=== PATIENT | male | born 1980 | race Caucasian/White ===

== ENCOUNTER 2017-01-27 03:46 | Emergency (ER) | payer OTHER ==
[~2017-01-27] VITALS: Ht 193 cm; Wt 108.9 kg
[~2017-01-27 03:46] MED LIST: ALPR1TAB6; COLE1TAB2 PO; HYDR-971 PO; HYOS0.1264 PO; LISI2.5T PO; METR500T4 PO; ONDA4TAB7 PO; OXYC1TAB8; OXYC5CAP3 PO; PROM25SU32 RC; SCOP1PAT TP
[2017-01-27] MEDS ORDERED: IV NORMAL SALINE 1000ML BAG 1,000 ML IV SCH (03:54)
[2017-01-27 04:16] LABS: BASO % 0 % (0-3); EOS % 1 % (0-3); HEMOGLOBIN 14.6 g/dL (13.0-17.5); LYMPH # 3.5 x10^3/uL (1.0-4.8); LYMPH % 31 % (24-48); MEAN CORPUSCULAR HEMOGLOBIN 31 pg (25-35); MEAN CORPUSCULAR HGB CONC 34 g/dL (31-37); MEAN CORPUSCULAR VOLUME 90 fL (79-100); MONO % 9 % (0-9); NEUT % 59 % (31-73); PLATELET COUNT 299 x10^3/uL (140-400); RED BLOOD COUNT 4.78 x10^6/uL (4.30-5.70); RED CELL DISTRIBUTION WIDTH 13.8 % (11.5-14.5); WHITE BLOOD COUNT 11.2 x10^3/uL (4.0-11.0)
[2017-01-27 04:23] LABS: CALCIUM 9.5 mg/dL (8.5-10.1); CREATININE 1.2 mg/dL (0.7-1.3); GFR 67.8; POTASSIUM 3.3 mmol/L (3.5-5.1)
[2017-01-27 04:29] LABS: ALBUMIN 4.4 g/dL (3.4-5.0); ALBUMIN/GLOBULIN RATIO 1.2 (1.0-1.7); TOTAL BILIRUBIN 0.5 mg/dL (0.2-1.0); TOTAL PROTEIN 8.1 g/dL (6.4-8.2)
[2017-01-27] MEDS ORDERED: CONTRAST GIVEN MC PRN (04:30)
[2017-01-27] MEDS ORDERED: ONDANSETRON PF 4 MG/2 ML VIAL. IV ONE (04:30)
[2017-01-27] MEDS ORDERED: HYDROMORPHONE 2 MG/ML VIAL. IV ONE (04:30)
[2017-01-27 04:51] LABS: BILIRUBIN,URINE SMALL (NEG); GLUCOSE,URINE NEGATIVE (NEG); NITRITE,URINE NEGATIVE (NEG); PROTEIN,URINE NEGATIVE (NEG-TRACE); UROBILINOGEN,URINE 0.2 mg/dL (0.2 mg/dL)
[2017-01-27] MEDS ORDERED: IOHEXOL 300 MG/ML 75 ML VIAL IV ONE (05:00)
--- NOTE | 2017-01-27 05:05 | RAD ---
PROCEDURE CT abdomen and pelvis with contrast HISTORY Left lower quadrant pain; hx diverticulitis; Omni 300, 75ml TECHNIQUE CT scan of the abdomen and pelvis was done using 75 mL of Omnipaque 300 contrast. One or more of the following individualized dose reduction techniques were utilized for this examination: 1. Automated exposure control; 2. Adjustment of the mA and/or kV according to patient size; 3. Use of iterative reconstruction technique.One or more of the following individualized dose reduction techniques were utilized for this examination: 1. Automated exposure control; 2. Adjustment of the mA and/or kV according to patient size; 3. Use of iterative reconstruction technique. COMPARISON Comparison is made with the study from December 01 FINDINGS There is linear atelectasis in the lung bases without other infiltrates. Patient has had a cholecystectomy. A liver lesion is not identified. Spleen and adrenal glands are normal. Pancreas is normal. There is no mass or hydronephrosis in the kidneys. There are small left renal cysts. There is no free air or ascites or bowel obstruction. Appendix is normal. There is not evidence of an acute diverticulitis. There is no free fluid in the pelvis. IMPRESSION 1. No abdominal or pelvic mass or acute inflammatory process noted. 2. No significant change from the recent prior study. Electronically signed by: Maurizio Oneil MD (Jan 27, 2017 05:04:26)
[2017-01-27 05:06] LABS: BACTERIA,URINE FEW /HPF (0-FEW); SQUAMOUS EPITHELIAL CELL,UR FEW /LPF; WBC,URINE 0 /HPF (0-4)
[2017-01-27] MEDS ORDERED: ONDA4TAB10 SL (05:21)
[2017-01-27] MEDS ORDERED: TRAM-29 PO (05:21)
--- NOTE | 2017-01-27 05:21 | PHYS DOC ---
Past Medical History Past Medical History: Diverticulitis, Hypertension, Other Additional Past Medical Histor: restless leg syndrome Past Surgical History: Cholecystectomy, Tonsillectomy, Other Additional Past Surgical Histo: BOWEL RESECTION Alcohol Use: Occasionally Drug Use: None Adult General Chief Complaint Chief Complaint: ABDOMINAL PAIN HPI HPI Patient is a 36 year old gentleman with a history significant for diverticulitis status post colon resection secondary to diverticulitis presents here today complaining of left lower quadrant abdominal pain that started earlier today with nausea. Patient denies any fevers shakes chills. Patient denies any bowel changes. Patient denies any dysuria frequency or urgency. Patient's physical exam and the ER is consistent with tenderness to palpation to his left lower quadrant. Patient has no rebound or guarding. Patient's NABS. Patient is not exhibiting any signs or symptoms of be consistent with an acute surgical abdomen. In the ER patient had a CT scan of the abdomen and pelvis which revealed no acute pathology as read by the radiology service. There is no abdominal or pelvic masses or acute inflammatory processes are noted. There are no significant changes from his recent prior study. While in the ER patient last on for all unremarkable. Patient's lipase is mildly elevated but not consistent with acute pancreatitis and his presentation was actually not consistent with acute pancreatitis. Patient is given a dose of pain medicines here in the ED as well as IV fluids and feels improved. The etiology of the patient's abdominal pain is unclear. I discussed the patient that does not appear to Reis that he has any acute emergent issues that will require further inpatient R ER evaluation. We have ruled out to the best ability all emergent issues. Patient is to follow-up with his primary care physician for outpatient evaluation with a possible colonoscopy and further studies per the specialist service. Review of Systems Review of Systems Constitutional: Denies fever or chills [] Eyes: Denies change in visual acuity, redness, or eye pain [] HENT: Denies nasal congestion or sore throat [] All other review systems are negative except as documented in the history of present illness portion. Current Medications Current Medications Current Medications Medications (Trade) Dose Ordered Sig/Ria Start Time Stop Time Status Last Admin Dose Admin Hydromorphone HCl (Dilaudid) 1 mg 1X ONCE 01/27/17 04:30 01/27/17 04:31 DC 01/27/17 04:20 1 MG Info (Do NOT chart on this entry -- for MONITORING) 1 each PRN DAILY PRN 01/27/17 04:30 01/29/17 04:29 Iohexol (Omnipaque 300 Mg/ml) 75 ml 1X ONCE 01/27/17 05:00 01/27/17 05:01 DC 01/27/17 04:39 75 ML Ondansetron HCl (Zofran) 4 mg 1X ONCE 01/27/17 04:30 01/27/17 04:31 DC 01/27/17 04:16 4 MG Sodium Chloride (Iv Sodium Chloride 0.9% 1000ml Bag) 1,000 ml @ 1,000 mls/hr Q1H 01/27/17 03:54 01/27/17 04:53 DC 01/27/17 04:13 1,000 MLS/HR Allergies Allergies Allergies Coded Allergies Type Severity Reaction Last Updated Verified No Known Drug Allergies 12/05/13 No Physical Exam Physical Exam Constitutional: Well developed, well nourished, no acute distress, non-toxic appearance. [] HENT: Normocephalic, atraumatic, bilateral external ears normal, oropharynx moist, no oral exudates, nose normal. [] Eyes: PERRLA, EOMI, conjunctiva normal, no discharge. [] Neck: Normal range of motion, no tenderness, supple, no stridor. [] Cardiovascular:Heart rate regular rhythm, no murmur [] Lungs & Thorax: Bilateral breath sounds clear to auscultation [] Abdomen: Bowel sounds normal, soft, no masses, no pulsatile masses. [] Skin: Warm, dry, no erythema, no rash. [] Back: No tenderness, no CVA tenderness. [] Extremities: No tenderness, no cyanosis, no clubbing, ROM intact, no edema. [] Neurologic: Alert and oriented X 3, normal motor function, normal sensory function, no focal deficits noted. [] Psychologic: Affect normal, judgement normal, mood normal. [] Current Patient Data Vital Signs Vital Signs Date Time Temp Pulse Resp B/P Pulse Ox O2 Delivery O2 Flow Rate FiO2 01/27/17 04:20 18 01/27/17 03:55 97.3 94 152/95 96 Room Air 97.3 Lab Values Laboratory Tests Test 01/27/17 04:00 01/27/17 04:42 White Blood Count 11.2x10^3/uL (4.0-11.0) H Red Blood Count 4.78x10^6/uL (4.30-5.70) Hemoglobin 14.6g/dL (13.0-17.5) Hematocrit 43.0% (39.0-53.0) Mean Corpuscular Volume 90fL (79-100) Mean Corpuscular Hemoglobin 31pg (25-35) Mean Corpuscular Hemoglobin Concent 34g/dL (31-37) Red Cell Distribution Width 13.8% (11.5-14.5) Platelet Count 299x10^3/uL (140-400) Neutrophils (%) (Auto) 59% (31-73) Lymphocytes (%) (Auto) 31% (24-48) Monocytes (%) (Auto) 9% (0-9) Eosinophils (%) (Auto) 1% (0-3) Basophils (%) (Auto) 0% (0-3) Neutrophils # (Auto) 6.6x10^3uL (1.8-7.7) Lymphocytes # (Auto) 3.5x10^3/uL (1.0-4.8) Monocytes # (Auto) 1.0x10^3/uL (0.0-1.1) Eosinophils # (Auto) 0.1x10^3/uL (0.0-0.7) Basophils # (Auto) 0.0x10^3/uL (0.0-0.2) Sodium Level 143mmol/L (136-145) Potassium Level 3.3mmol/L (3.5-5.1) L Chloride Level 103mmol/L (98-107) Carbon Dioxide Level 24mmol/L (21-32) Anion Gap 16 (6-14) H Blood Urea Nitrogen 13mg/dL (8-26) Creatinine 1.2mg/dL (0.7-1.3) Estimated GFR (Cockcroft-Gault) 67.8 BUN/Creatinine Ratio 11 (6-20) Glucose Level 94mg/dL (70-99) Calcium Level 9.5mg/dL (8.5-10.1) Total Bilirubin 0.5mg/dL (0.2-1.0) Aspartate Amino Transferase (AST) 12U/L (15-37) L Alanine Aminotransferase (ALT) 36U/L (16-63) Alkaline Phosphatase 61U/L (46-116) Total Protein 8.1g/dL (6.4-8.2) Albumin 4.4g/dL (3.4-5.0) Albumin/Globulin Ratio 1.2 (1.0-1.7) Lipase 452U/L (73-393) H Urine Collection Type Unknown Urine Color Yellow Urine Clarity Clear Urine pH 6.0 Urine Specific [place] >=1.030 Urine Protein Negativemg/dL (NEG-TRACE) Urine Glucose (UA) Negativemg/dL (NEG) Urine Ketones (Stick) 40mg/dL (NEG) Urine Blood Negative (NEG) Urine Nitrite Negative (NEG) Urine Bilirubin Small (NEG) Urine Urobilinogen Dipstick 0.2mg/dL (0.2 mg/dL) Urine Leukocyte Esterase Negative (NEG) Urine RBC 6-10/HPF (0-2) Urine WBC 0/HPF (0-4) Urine Squamous Epithelial Cells Few/LPF Urine Bacteria Few/HPF (0-FEW) Urine Mucus Marked/LPF Laboratory Tests 01/27/17 04:00 Laboratory Tests 01/27/17 04:00 EKG EKG [] Radiology/Procedures Radiology/Procedures [] Course & Med Decision Making Course & Med Decision Making Pertinent Labs and Imaging studies reviewed. (See chart for details) [] Dragon Disclaimer Dragon Disclaimer This electronic medical record was generated, in whole or in part, using a voice recognition dictation system. Departure Departure Impression: Primary Impression: Abdominal pain Disposition: HOME, SELF-CARE Condition: IMPROVED Referrals: KIA JORDAN MD (PCP) Patient Instructions: Abdominal Pain (Nonspecific) Scripts Ondansetron (Zofran Odt)4 Mg Tab.rapdis1 Tab SL Q6HRS PRN NAUSEA #12 TAB Prov:TED COLLINS MD 01/27/17 Tramadol Hcl (Ultram)50 Mg Tablet1 Tab PO Q6HRS #14 TAB Prov:TED COLLINS MD 01/27/17 TED COLLINS MD Jan 27, 2017 05:21
[2017-01-27 05:30] VITALS: BP 124/78
== END 2017-01-27 05:32 | disposition home or self-care (01) ==
LOC: ER 03:46
DX: R10.32 Left lower quadrant pain (principal); R74.8 Abnormal levels of other serum enzymes; I10 Essential (primary) hypertension; G25.81 Restless legs syndrome; Z90.49 Acquired absence of other specified parts of digestive tract
CPT/HCPCS: 36415; 74177; 80053; 81001; 83690; 85027; 96361; 96374; 96375; 99285; J1170; J2405; J7030; Q9967

== ENCOUNTER 2017-02-21 18:40 | Inpatient (IN) | payer SELFPAY ==
[~2017-02-21] VITALS: Ht 193 cm; Wt 100.7 kg
[~2017-02-21 18:40] MED LIST changes: +ONDA4TAB10 SL; +TRAM-29 PO
[2017-02-21] MEDS ORDERED: IV NORMAL SALINE 1000ML BAG 1,000 ML IV ONE (19:15)
[2017-02-21] MEDS ORDERED: ONDANSETRON PF 4 MG/2 ML VIAL. IV ONE (19:15)
[2017-02-21] MEDS ORDERED: HYDROMORPHONE 2 MG/ML VIAL. IV ONE (19:15)
[2017-02-21 19:39] LABS: BASO # 0.1 x10^3/uL (0.0-0.2); BASO % 1 % (0-3); EOS % 1 % (0-3); HEMATOCRIT 46.4 % (39.0-53.0); HEMOGLOBIN 15.7 g/dL (13.0-17.5); LYMPH # 2.4 x10^3/uL (1.0-4.8); LYMPH % 30 % (24-48); MEAN CORPUSCULAR HEMOGLOBIN 31 pg (25-35); MEAN CORPUSCULAR HGB CONC 34 g/dL (31-37); MEAN CORPUSCULAR VOLUME 92 fL (79-100); MONO % 10 % (0-9); NEUT % 58 % (31-73); PLATELET COUNT 293 x10^3/uL (140-400); RED BLOOD COUNT 5.04 x10^6/uL (4.30-5.70); RED CELL DISTRIBUTION WIDTH 14.6 % (11.5-14.5); WHITE BLOOD COUNT 7.9 x10^3/uL (4.0-11.0)
[2017-02-21 19:51] LABS: CALCIUM 9.8 mg/dL (8.5-10.1); CREATININE 1.1 mg/dL (0.7-1.3); GFR 74.9; POTASSIUM 4.2 mmol/L (3.5-5.1)
[2017-02-21 19:57] LABS: ALBUMIN 4.5 g/dL (3.4-5.0); ALBUMIN/GLOBULIN RATIO 1.1 (1.0-1.7); TOTAL BILIRUBIN 0.5 mg/dL (0.2-1.0); TOTAL PROTEIN 8.6 g/dL (6.4-8.2)
--- NOTE | 2017-02-21 20:07 | RAD ---
PROCEDURE CT abdomen and pelvis without intravenous contrast. HISTORY Left lower quadrant pain. History of the diverticulitis and colonic resection. TECHNIQUE Helical CT of the abdomen and pelvis was performed without intravenous or oral contrast. Exposure: One or more of the following individualized dose reduction techniques were utilized for this examination: 1. Automated exposure control. 2. Adjustment of the mA and/or kV according to patient size. 3. Use of iterative reconstruction technique. COMPARISON CT abdomen pelvis January 27, 2017. FINDINGS Evaluation of solid organs is limited by lack of intravenous contrast. Evaluation of enteric structures may be limited by lack of oral contrast. Liver, spleen, pancreas, and bilateral adrenal glands are unremarkable. Bilateral kidneys and ureters are free of stone or obstruction. No bowel obstruction or inflammation is identified. Suture material is seen involving the sigmoid colon, compatible with previous bowel colonic resection. Urinary bladder is unremarkable. No free air or free fluid is seen in the abdomen or pelvis. Appendix has maximum diameter of 8-9 millimeters, mildly enlarged, although there is no surrounding fat inflammation. On previous study, diameter of the appendix was 8 millimeters. IMPRESSION The appendix is apparently enlarged measuring 8-9 millimeters in diameter, although no significant periappendiceal inflammation is seen. This size is considered equivocal for acute appendicitis, although there is no surrounding fat inflammation. Recommend clinical correlation. Electronically signed by: Ulysses Paulino MD (Feb 21, 2017 20:06:02)
[2017-02-21 20:26] LABS: BILIRUBIN,URINE NEGATIVE (NEG); GLUCOSE,URINE NEGATIVE (NEG); NITRITE,URINE NEGATIVE (NEG); PH,URINE 6.5; PROTEIN,URINE NEGATIVE (NEG-TRACE); UROBILINOGEN,URINE 0.2 mg/dL (0.2 mg/dL)
[2017-02-21] MEDS ORDERED: FENTANYL PF 100 MCG/2 ML VIAL. IV PRN (20:30)
[2017-02-21] MEDS ORDERED: ONDANSETRON PF 4 MG/2 ML VIAL. IV PRN (20:30)
[2017-02-21 20:32] LABS: BACTERIA,URINE 0 /HPF (0-FEW); RBC,URINE 0 /HPF (0-2); SQUAMOUS EPITHELIAL CELL,UR FEW /LPF
[2017-02-21] MEDS: HYDROMORPHONE 2 MG/ML VIAL. IV/SQ PRN ×3 (20:43→21:41)
--- NOTE | 2017-02-21 21:32 | PHYS DOC ---
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 He states the pain came so bad over the last several hours that he tried to give himself an IV to start some fluids but was unsuccessful. He is not had any high fever. He has had nausea and vomiting. He states he's been unable to eat much of anything. He denies any melena or hematemesis. [] Review of Systems Review of Systems Constitutional: Denies fever or chills [] Eyes: Denies change in visual acuity, redness, or eye pain [] HENT: Denies nasal congestion or sore throat [] Respiratory: Denies cough or shortness of breath [] Cardiovascular: No additional information not addressed in HPI [] GI: Lower abdominal pain [] : Denies dysuria or hematuria [] Musculoskeletal: Denies back pain or joint pain [] Integument: Denies rash or skin lesions [] Neurologic: Denies headache, focal weakness or sensory changes [] Endocrine: Denies polyuria or polydipsia [] Current Medications Current Medications Current Medications Medications (Trade) Dose Ordered Sig/Ria Start Time Stop Time Status Last Admin Dose Admin Hydromorphone HCl (Dilaudid) 1 mg 1X ONCE 02/21/17 19:15 02/21/17 19:16 DC 02/21/17 19:27 1 MG Hydromorphone HCl 1 mg 1 mg PRN Q15MIN PRN 02/21/17 20:15 02/22/17 20:14 02/21/17 21:11 1 MG Ondansetron HCl (Zofran) 4 mg 1X ONCE 02/21/17 19:15 02/21/17 19:16 DC 02/21/17 19:27 4 MG Sodium Chloride (Iv Sodium Chloride 0.9% 1000ml Bag) 1,000 ml @ 150 mls/hr Q6H40M 02/21/17 20:17 02/22/17 20:16 Allergies Allergies Allergies Coded Allergies Type Severity Reaction Last Updated Verified No Known Drug Allergies 12/05/13 No Physical Exam Physical Exam Constitutional: Well developed, well nourished, moderate distress, non-toxic appearance. [] HENT: Normocephalic, atraumatic, bilateral external ears normal, oropharynx moist, no oral exudates, nose normal. [] Eyes: PERRLA, EOMI, conjunctiva normal, no discharge. [] Neck: Normal range of motion, no tenderness, supple, no stridor. [] Cardiovascular:Heart rate regular rhythm, no murmur [] Lungs & Thorax: Bilateral breath sounds clear to auscultation [] Abdomen: Mildly tender to palp across the low abdomen some guarding in the left lower quadrant no rebound [] Skin: Warm, dry, no erythema, no rash. [] Back: No tenderness, no CVA tenderness. [] Extremities: No tenderness, no cyanosis, no clubbing, ROM intact, no edema. [] Neurologic: Alert and oriented X 3, normal motor function, normal sensory function, no focal deficits noted. [] Psychologic: Affect normal, judgement normal, mood normal. [] Current Patient Data Vital Signs Vital Signs Date Time Temp Pulse Resp B/P Pulse Ox O2 Delivery O2 Flow Rate FiO2 02/21/17 19:27 Room Air 02/21/17 18:56 98.4 112 20 130/87 99 98.4 Lab Values Laboratory Tests Test 02/21/17 19:20 02/21/17 20:15 White Blood Count 7.9x10^3/uL (4.0-11.0) Red Blood Count 5.04x10^6/uL (4.30-5.70) Hemoglobin 15.7g/dL (13.0-17.5) Hematocrit 46.4% (39.0-53.0) Mean Corpuscular Volume 92fL (79-100) Mean Corpuscular Hemoglobin 31pg (25-35) Mean Corpuscular Hemoglobin Concent 34g/dL (31-37) Red Cell Distribution Width 14.6% (11.5-14.5) H Platelet Count 293x10^3/uL (140-400) Neutrophils (%) (Auto) 58% (31-73) Lymphocytes (%) (Auto) 30% (24-48) Monocytes (%) (Auto) 10% (0-9) H Eosinophils (%) (Auto) 1% (0-3) Basophils (%) (Auto) 1% (0-3) Neutrophils # (Auto) 4.6x10^3uL (1.8-7.7) Lymphocytes # (Auto) 2.4x10^3/uL (1.0-4.8) Monocytes # (Auto) 0.8x10^3/uL (0.0-1.1) Eosinophils # (Auto) 0.1x10^3/uL (0.0-0.7) Basophils # (Auto) 0.1x10^3/uL (0.0-0.2) Sodium Level 144mmol/L (136-145) Potassium Level 4.2mmol/L (3.5-5.1) Chloride Level 106mmol/L (98-107) Carbon Dioxide Level 25mmol/L (21-32) Anion Gap 13 (6-14) Blood Urea Nitrogen 7mg/dL (8-26) L Creatinine 1.1mg/dL (0.7-1.3) Estimated GFR (Cockcroft-Gault) 74.9 BUN/Creatinine Ratio 6 (6-20) Glucose Level 96mg/dL (70-99) Calcium Level 9.8mg/dL (8.5-10.1) Total Bilirubin 0.5mg/dL (0.2-1.0) Aspartate Amino Transferase (AST) 21U/L (15-37) Alanine Aminotransferase (ALT) 51U/L (16-63) Alkaline Phosphatase 80U/L (46-116) Total Protein 8.6g/dL (6.4-8.2) H Albumin 4.5g/dL (3.4-5.0) Albumin/Globulin Ratio 1.1 (1.0-1.7) Lipase 328U/L (73-393) Urine Collection Type Unknown Urine Color Yellow Urine Clarity Cloudy Urine pH 6.5 Urine Specific [place] <=1.005 Urine Protein Negativemg/dL (NEG-TRACE) Urine Glucose (UA) Negativemg/dL (NEG) Urine Ketones (Stick) Negativemg/dL (NEG) Urine Blood Negative (NEG) Urine Nitrite Negative (NEG) Urine Bilirubin Negative (NEG) Urine Urobilinogen Dipstick 0.2mg/dL (0.2 mg/dL) Urine Leukocyte Esterase Trace (NEG) Urine RBC 0/HPF (0-2) Urine WBC 5-10/HPF (0-4) Urine Squamous Epithelial Cells Few/LPF Urine Bacteria 0/HPF (0-FEW) Urine Mucus Slight/LPF Laboratory Tests 02/21/17 19:20 Laboratory Tests 02/21/17 19:20 EKG EKG [] Radiology/Procedures Radiology/Procedures [] Impressions: PROCEDURE: ABDOMEN PELVIS WO CONTRAST PROCEDURE CT abdomen and pelvis without intravenous contrast. HISTORY Left lower quadrant pain. History of the diverticulitis and colonic resection. TECHNIQUE Helical CT of the abdomen and pelvis was performed without intravenous or oral contrast. Exposure: One or more of the following individualized dose reduction techniques were utilized for this examination: 1. Automated exposure control. 2. Adjustment of the mA and/or kV according to patient size. 3. Use of iterative reconstruction technique. COMPARISON CT abdomen pelvis January 27, 2017. FINDINGS Evaluation of solid organs is limited by lack of intravenous contrast. Evaluation of enteric structures may be limited by lack of oral contrast. Liver, spleen, pancreas, and bilateral adrenal glands are unremarkable. Bilateral kidneys and ureters are free of stone or obstruction. No bowel obstruction or inflammation is identified. Suture material is seen involving the sigmoid colon, compatible with previous bowel colonic resection. Urinary bladder is unremarkable. No free air or free fluid is seen in the abdomen or pelvis. Appendix has maximum diameter of 8-9 millimeters, mildly enlarged, although there is no surrounding fat inflammation. On previous study, diameter of the appendix was 8 millimeters. IMPRESSION The appendix is apparently enlarged measuring 8-9 millimeters in diameter, although no significant periappendiceal inflammation is seen. This size is considered equivocal for acute appendicitis, although there is no surrounding fat inflammation. Recommend clinical correlation. Course & Med Decision Making Course & Med Decision Making Pertinent Labs and Imaging studies reviewed. (See chart for details) [ED course: Evaluation reveals a 36-year-old male in moderate to severe distress secondary to abdominal pain. His abdominal exam was consistent with mild peritonitis. CT scan showed an enlarged appendix consistent with possible acute appendicitis. I discussed this with the patient who agreed to be admitted to the hospital for further evaluation. I spoke with Dr. Cuevas who agreed to see the patient in consult. Dr. Hsu will admit the patient to the [facility].] Dragon Disclaimer Dragon Disclaimer This electronic medical record was generated, in whole or in part, using a voice recognition dictation system. Departure Departure Impression: Primary Impression: Abdominal pain Disposition: ADMITTED INPATIENT Condition: STABLE ([place]us[place]) Referrals: KIA JORDAN MD (PCP) Problem Qualifiers Primary Impression: Abdominal pain Abdominal location: lower abdomen, unspecified Qualified Code: R10.30 - Lower abdominal pain, unspecified RALPH ALCANTAR DO Feb 21, 2017 21:32
[2017-02-21] MEDS ORDERED: METOCLOPRAMIDE HCL 10 MG/10 ML SOLUTION. PO PRN (22:45)
[2017-02-21] MEDS: IV NORMAL SALINE 1000ML BAG 1,000 ML IV SCH (22:47)
--- NOTE | 2017-02-21 23:32 | HP ---
ADMIT DATE: 02/21/2017 CHIEF COMPLAINT: Severe left lower quadrant abdominal pain. 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 He states that this typically starts in the right lower quadrant, is severe and within a few hours, he has to go into the hospital and receive IV narcotics for this. He states that occasionally he gets prescription for Cipro and Flagyl for this and sometimes this supports the severe pain symptoms. This, however, was not one of them. He actually tried to start himself on IV bolus, was unsuccessful. He denies any fevers, always has nausea, vomiting same as this time. He denies any hematemesis or melena. He does have chronic diarrhea, multiple times a day. This has been going on even prior to his resection. PAST MEDICAL HISTORY: Diverticulitis, status post partial colectomy, hypertension, restless legs syndrome, status post cholecystectomy, tonsillectomy. FAMILY HISTORY: Positive for grandmother with colon cancer in her 80s. SOCIAL HISTORY: Lives by himself, chews tobacco occasionally, had cannabis visiting a friend 2 weeks ago in [place], denies regular use. ALLERGIES: No known drug allergies. MEDICATIONS: MAR reconciled with home medications. REVIEW OF SYSTEMS: Positive as per HPI. PHYSICAL EXAMINATION: VITAL SIGNS: From today show a blood pressure of 115/71, heart rate at 87, respiratory rate at 15. He is afebrile. GENERAL: This is an overweight 36-year-old gentleman, alert and oriented, in no acute distress. HEENT: Shows no scleral icterus. Oral mucosa is pink and moist. NECK: Supple. LUNGS: Clear to auscultation bilaterally. CARDIOVASCULAR: Heart is regular rate and rhythm. ABDOMEN: Positive bowel sounds, soft. Guarding in anticipation in left lower quadrant, minimal tenderness in right pelvic area. EXTREMITIES: Show no edema. SKIN: Warm, soft and dry. LABORATORY DATA: CBC with WBC of 7.9, hemoglobin 15.7, platelets of 293, normal diff, BUN and creatinine of 7 and 1.1, normal electrolytes, normal LFTs. Urine is negative for infectious signs. IMAGING: CT of the abdomen and pelvis reveals enlarged appendix at 8-9 mm in diameter. No periappendiceal inflammation seen. Size is considered equivocal for acute appendicitis. ASSESSMENT AND PLAN: The patient is a 36-year-old gentleman with recurrent left-sided abdominal pain requiring IV narcotics. No etiology for left-sided pain has been noted. Suspect the finding of his appendix is incidental. No pain on that side is noted. Dr. Cuevas from Surgery has been consulted, nevertheless. His left lower quadrant pain is somewhat unexplained. He has been admitted here multiple times, multiple CTs have been obtained as well as endoscopies. Most recent colonoscopy with Dr. Deleon about 3 months ago at his previous admission. No significant findings were found. We will consult Dr. Deleon again. I am not sure what GI etiology is underlying. His symptoms appear to be quite episodic. We will have to discuss other etiologies such as migraine or other exotic diagnosis with Dr. Deleon. For now, we will continue with IV Dilaudid, Reglan and Zofran p.r.n. LUIS ALAN MD DR: ONELIA/nts JOB#: [id number] / [id number] MARGARITA
--- NOTE | 2017-02-21 23:49 | ACF ---
Admission Forms Criteria ABDOMINAL PAIN Clinical Indications for Admission to Inpatient Care (Place 'X' for any and all applicable criteria): Admission is indicated for ANY ONE of the following(1)(2)(3)(4)(5): [X]I. Inpatient admission required rather than observation care (Also use Abdominal Pain: Observation Care, as appropriate) because of ANY ONE of the following: [X]a) Severe pain requiring acute inpatient management [ ]b) Identification of etiology/finding that requires inpatient care (eg, aortic dissection, free air) [ ]c) Absent bowel sounds with complete ileus(6) [ ]d) Suspected toxic megacolon [ ]e) Severe electrolyte abnormalities requiring inpatient care [ ]f) High fever or infection requiring inpatient admission as indicated by ANY ONE of following(7)(8): [ ] i) Appropriate outpatient or observational care antimicrobial treatment unavailable, not effective, or not feasible [ ] ii) Documented bacteremia [ ] iii) Temperature > 104.9 degrees F (oral) [ ] iv) T >103.1 F (oral) or < 96.8 F(rectal) that does not respond to all emergency treatment measures [ ]g) Signs of intestinal obstruction [B] [ ]h) Hemodynamic instability [ ]i) IV fluid to replace significant ongoing losses (greater than 3 L/m2 per day) (12)(13) [ ]j) Percutaneous or open drainage (eg, abscess, biliary tract ) procedures [ ]k) Parenteral nutrition regimen that must be implemented on inpatient basis [ ]l) Other condition,treatment or monitoring requiring inpatient admission. [ ]II. Peritoneal signs present [ ]III. Surgery needed that cannot be performed on an ambulatory basis. [ ]IV. Evaluation requires patient to not eat or drink for extended period ( eg, more than 24 hours). [ ]V. Contraindications and/or Inappropriate clinical situations for Observational Care in patients with abdominal pain, when ANY ONE of the following is required: [ ]a) Thorough evaluation is required to prevent catastrophic events due to delays in diagnosing (e.g.Mesenteric ischemia) 1,3 [ ]b) Patient with severe pathology or with chronic symptoms unlikely to improve in the ED stay (3) [ ]. General contraindications and/or Inappropriate clinical situations for Observational Care in patients with abdominal pain, when ANY ONE of the following is required: [ ]a) Prediction of prolongation of LOS based on ANY ONE of the following may be considered as a contraindication for observational care 2, 3, 4, 5, 6, 7, 8, 9, 10, 11 [ ]i) Age > 65 yrs. [ ]ii) Patient arriving by ambulance [ ]iii) Patient with high acuity [ ]iv) Patient requiring vital sign monitoring [ ]v) Patient on IV medication [ ]b) Systolic blood pressures 180mmHg 3,12 [ ]c) Patient with altered mental status including delirium and other alteration of consciousness, (3) [ ]d) Patient whose discharge disposition will be to a fdc home or rehabilitation home should not be managed in Emergency Department Observation Unit. CMS rule requires 3 days hospital stay before such placement.3,13 [ ]e) Patient with failure to thrive due to broad array of etiologies 3,16,17 [ ]f) Inability to ambulate 3,14 Extended stay beyond goal length of stay may be needed for(2)(3): [ ]a) Persistent abdominal pain with suspected intra-abdominal process [ ]b) Diagnosed condition requiring continued stay (e.g., pancreatitis, complicated diverticulitis) [ ]c) Surgery (e.g., colectomy) The original [facility] content created by [employer] has been revised. The portions of the content which have been revised are identified through the use of italic text or in bold, and [facility] has neither reviewed nor approved the modified material.All other unmodified content is copyright [employer]. Please see references footnoted in the original [facility] edition 2016 Admission Criteria Met?: Yes ELIAN SAEED Feb 21, 2017 23:49
[2017-02-22] MEDS: HYDROMORPHONE 2 MG/ML VIAL. IV PRN ×9 (00:06→23:03)
[2017-02-22] MEDS: METOCLOPRAMIDE HCL 10 MG/2 ML VIAL. IV PRN ×2 (00:10→10:20)
[2017-02-22 03:42] VITALS: BP 111/62
[2017-02-22 04:11] LABS: BASO # 0.1 x10^3/uL (0.0-0.2); BASO % 1 % (0-3); EOS % 2 % (0-3); HEMATOCRIT 38.2 % (39.0-53.0); HEMOGLOBIN 13.1 g/dL (13.0-17.5); LYMPH % 40 % (24-48); MEAN CORPUSCULAR HEMOGLOBIN 31 pg (25-35); MEAN CORPUSCULAR HGB CONC 34 g/dL (31-37); MEAN CORPUSCULAR VOLUME 91 fL (79-100); MONO % 10 % (0-9); NEUT % 47 % (31-73); PLATELET COUNT 237 x10^3/uL (140-400); RED CELL DISTRIBUTION WIDTH 14.4 % (11.5-14.5); WHITE BLOOD COUNT 7.5 x10^3/uL (4.0-11.0)
[2017-02-22 04:42] LABS: CALCIUM 8.7 mg/dL (8.5-10.1); GFR 83.6; POTASSIUM 4.1 mmol/L (3.5-5.1)
[2017-02-22] MEDS: ONDANSETRON PF 4 MG/2 ML VIAL. IV PRN ×3 (05:01→23:03)
[2017-02-22] MEDS: IV NORMAL SALINE 1000ML BAG 1,000 ML IV SCH ×3 (05:02→17:56)
[2017-02-22 07:00] VITALS: BP 113/54
--- NOTE | 2017-02-22 10:12 | PDOC2 ---
CONSULT Date of Consult Date of Consult DATE: 02/22/17 TIME: 10:03 Identification/Chief Complaint Chief Complaint LLQ pain, nausea, vomiting for several months History of Present Illness Reason for Visit: The patient is a 36 year old male who reported to the ER with abdominal pain. The pain has been primarily in the LLQ and has been a problem for several months. He reports having a sigmoid colectomy by Dr Mchugh due to diverticulitis. Over the last 6 months he has lost nearly 60 lbs. He has seen Dr Deleon and had a thorough GI evaluation and does not state that an etiology has been determined. He states he was referred to [facility] but hasn't had an appointment there yet. This episode is similar with pain mostly in the LLQ. There is some lesser radiation to the right side since yesterday. He denies fever or chills. Past Medical History Cardiovascular: No pertinent hx Pulmonary: No pertinent hx GI: Diverticulosis, Other Hepatobiliary: Other Past Surgical History Past Surgical History: Cholecystectomy, Colon Resection Family History Family History: No Significant Social History No ALCOHOL: none Drugs: None Current Problem List Problem List Problems Medical Problems: (1) Abdominal pain Status: Acute Current Medications Current Medications Current Medications Hydromorphone HCl 1 mg 1 mg 1X ONCE IV Last administered on 02/21/17 19:27; Start 02/21/17 at 19:15; Stop 02/21/17 at 19:16; Status DC Sodium Chloride (Iv Sodium Chloride 0.9% 1000ml Bag) 1,000 ml @ 1,000 mls/hr 1X ONCE IV Last administered on 02/21/17 19:27; Start 02/21/17 at 19:15; Stop 02/21/17 at 20:14; Status DC Ondansetron HCl (Zofran) 4 mg 1X ONCE IV Last administered on 02/21/17 19:27 ; Start 02/21/17 at 19:15; Stop 02/21/17 at 19:16; Status DC Hydromorphone HCl (Dilaudid) 1 mg PRN Q15MIN PRN IV/SQ PAIN GREATER THAN 3/10 Last administered on 02/21/17 21:41; Start 02/21/17 at 20:15; Stop 02/21/17 at 22:46; Status DC Ondansetron HCl (Zofran) 4 mg PRN Q8HRS PRN IV NAUSEA/VOMITING; Start 02/21/17 at 20:30; Stop 02/21/17 at 22:46; Status DC Fentanyl Citrate 50 mcg 50 mcg PRN Q1HR PRN IV PAIN; Start 02/21/17 at 20:30; Stop 02/21/17 at 22:46; Status DC Sodium Chloride (Iv Sodium Chloride 0.9% 1000ml Bag) 1,000 ml @ 150 mls/hr Q6H40M IV Last administered on 02/22/17 05:02; Start 02/21/17 at 20:17; Stop 02/22/17 at 20:16 Ondansetron HCl (Zofran) 4 mg PRN Q8HRS PRN IV NAUSEA/VOMITING Last administered on 02/22/17 05:01; Start 02/21/17 at 22:45 Hydromorphone HCl (Dilaudid) 0.5 mg Q2H PRN IV pain Last administered on 07:49; Start 02/21/17 at 22:45 Metoclopramide HCl (Reglan) 5 mg PRN Q8HRS PRN PO NAUSEA/VOMITING; Start at 22:45 Metoclopramide HCl (Reglan) 5 mg PRN Q8HRS PRN IV NAUSEA/VOMITING Last administered on 02/22/17 00:10; Start 02/22/17 at 00:00 Active Scripts Active Zofran Odt (Ondansetron) 4 Mg Tab.rapdis 1 Tab SL Q6HRS PRN Ultram (Tramadol Hcl) 50 Mg Tablet 1 Tab PO Q6HRS Zofran (Ondansetron Hcl) 4 Mg Tablet 1 Tab PO Q8HRS PRN [place] 5-325 Tablet (Acetaminophen/Hydrocodone Bitart) 1 Each Tablet 1 Tab PO PRN Q6HRS PRN Reported Transderm-Scop (Scopolamine) 1 Each Patch.td72 1 Patch TP Q3DAYS Oxycodone Hcl 5 Mg Capsule 7.5 Mg PO TID PRN PRN Colestipol Hcl 1 Gm Tablet 1 Gm PO BID Metronidazole 500 Mg Tablet 500 Mg PO TID Alprazolam 1 Mg Tablet Allergies Allergies: Coded Allergies: No Known Drug Allergies (Unverified , 12/05/13) ROS General: YES: Other (weight loss) PSYCHOLOGICAL ROS: No: Anxiety, Behavioral Disorder, Concentration difficultie , Decreased libido, Depression, Disorientation, Hallucinations, Hostility, Irritablity, Memory difficulties, Mood Swings, Obsessive thoughts, Other, Physical abuse, Sexual abuse, Sleep disturbances, Suicidal ideation Eyes: No Blurry vision, No Decreased vision, No Double vision, No Dry eyes, No Excessive tearing, No Eye Pain, No Itchy Eyes, No Loss of vision, No Other, No Photophobia, No Scotomata, No Uses contacts, No Uses glasses HEENT: No: Epistaxis, Heacaches, Hearing change, Nasal congestion, Nasal discharge, Oral lesions, Other, Sinus pain, Sneezing, Snoring, Sore Throat, Tinnitus, Vertigo, Visual Changes, Vocal changes Gastrointestinal: Yes Abdominal Pain (LLQ, chronic), Yes Nausea, Yes Vomiting Genitourinary: No , No , No , No , No , No , No , No Discharge, No Dysuria, No Flank Pain, No Frequency, No Hematuria, No Incontinence, No Other, No Pain, No Retention, No Urgency Musculoskeletal: No Gait Disturbance, No Joint Pain, No Joint Stiffness, No Joint Swelling, No Muscle Pain, No Muscular Weakness, No Other, No Pain In:, No Swelling In: Neurological: No Behavorial Changes, No Bowel/Bladder ControlChng, No Confusion , No Dizziness, No Gait Disturbance, No Headaches, No Impaired Coord/balance, No Memory Loss, No Numbness/Tingling, No Other, No Seizures, No Speech Problems , No Tremors, No Visual Changes, No Weakness Skin: No Acne, No Dry Skin, No Eczema, No Hair Changes, No Lumps, No Mole Changes, No Mottling, No Nail Changes, No Other, No Pruritus, No Rash, No Skin Lesion Changes Physical Exam General: Alert, Oriented X3, Cooperative HEENT: Atraumatic Lungs: Clear to auscultation Heart: Regular rate Abdomen: Soft, Other (tenderness in the low abdomen, worse in LLQ, no guarding on right side, no peritoneal signs) Extremities: No clubbing, No cyanosis Skin: No rashes Neuro: Normal speech, Strength at 5/5 X4 ext Psych/Mental Status: Mental status NL MUSCULOSKELETAL: No joint tenderness, No deformity Vitals VITALS Vital Signs Date Time Temp Pulse Resp B/P Pulse Ox O2 Delivery O2 Flow Rate FiO2 02/22/17 07:55 Room Air 02/22/17 07:49 97 02/22/17 07:00 97.7 55 18 113/54 97.7 Labs Labs Laboratory Tests Test 02/21/17 19:20 02/21/17 20:15 02/22/17 03:45 White Blood Count 7.9x10^3/uL (4.0-11.0) 7.5x10^3/uL (4.0-11.0) Red Blood Count 5.04x10^6/uL (4.30-5.70) 4.20x10^6/uL (4.30-5.70) Hemoglobin 15.7g/dL (13.0-17.5) 13.1g/dL (13.0-17.5) Hematocrit 46.4% (39.0-53.0) 38.2% (39.0-53.0) Mean Corpuscular Volume 92fL (79-100) 91fL (79-100) Mean Corpuscular Hemoglobin 31pg (25-35) 31pg (25-35) Mean Corpuscular Hemoglobin Concent 34g/dL (31-37) 34g/dL (31-37) Red Cell Distribution Width 14.6% (11.5-14.5) 14.4% (11.5-14.5) Platelet Count 293x10^3/uL (140-400) 237x10^3/uL (140-400) Neutrophils (%) (Auto) 58% (31-73) 47% (31-73) Lymphocytes (%) (Auto) 30% (24-48) 40% (24-48) Monocytes (%) (Auto) 10% (0-9) 10% (0-9) Eosinophils (%) (Auto) 1% (0-3) 2% (0-3) Basophils (%) (Auto) 1% (0-3) 1% (0-3) Neutrophils # (Auto) 4.6x10^3uL (1.8-7.7) 3.5x10^3uL (1.8-7.7) Lymphocytes # (Auto) 2.4x10^3/uL (1.0-4.8) 3.0x10^3/uL (1.0-4.8) Monocytes # (Auto) 0.8x10^3/uL (0.0-1.1) 0.8x10^3/uL (0.0-1.1) Eosinophils # (Auto) 0.1x10^3/uL (0.0-0.7) 0.1x10^3/uL (0.0-0.7) Basophils # (Auto) 0.1x10^3/uL (0.0-0.2) 0.1x10^3/uL (0.0-0.2) Sodium Level 144mmol/L (136-145) 145mmol/L (136-145) Potassium Level 4.2mmol/L (3.5-5.1) 4.1mmol/L (3.5-5.1) Chloride Level 106mmol/L (98-107) 110mmol/L (98-107) Carbon Dioxide Level 25mmol/L (21-32) 24mmol/L (21-32) Anion Gap 13 (6-14) 11 (6-14) Blood Urea Nitrogen 7mg/dL (8-26) 9mg/dL (8-26) Creatinine 1.1mg/dL (0.7-1.3) 1.0mg/dL (0.7-1.3) Estimated GFR (Cockcroft-Gault) 74.9 83.6 BUN/Creatinine Ratio 6 (6-20) Glucose Level 96mg/dL (70-99) 87mg/dL (70-99) Calcium Level 9.8mg/dL (8.5-10.1) 8.7mg/dL (8.5-10.1) Total Bilirubin 0.5mg/dL (0.2-1.0) Aspartate Amino Transf (AST/SGOT) 21U/L (15-37) Alanine Aminotransferase (ALT/SGPT) 51U/L (16-63) Alkaline Phosphatase 80U/L (46-116) Total Protein 8.6g/dL (6.4-8.2) Albumin 4.5g/dL (3.4-5.0) Albumin/Globulin Ratio 1.1 (1.0-1.7) Lipase 328U/L (73-393) Urine Collection Type Unknown Urine Color Yellow Urine Clarity Cloudy Urine pH 6.5 Urine Specific [place] <=1.005 Urine Protein Negativemg/dL (NEG-TRACE) Urine Glucose (UA) Negativemg/dL (NEG) Urine Ketones (Stick) Negativemg/dL (NEG) Urine Blood Negative (NEG) Urine Nitrite Negative (NEG) Urine Bilirubin Negative (NEG) Urine Urobilinogen Dipstick 0.2mg/dL (0.2 mg/dL) Urine Leukocyte Esterase Trace (NEG) Urine RBC 0/HPF (0-2) Urine WBC 5-10/HPF (0-4) Urine Squamous Epithelial Cells Few/LPF Urine Bacteria 0/HPF (0-FEW) Urine Mucus Slight/LPF Laboratory Tests Test 02/21/17 19:20 02/21/17 20:15 02/22/17 03:45 White Blood Count 7.9x10^3/uL (4.0-11.0) 7.5x10^3/uL (4.0-11.0) Red Blood Count 5.04x10^6/uL (4.30-5.70) 4.20x10^6/uL (4.30-5.70) Hemoglobin 15.7g/dL (13.0-17.5) 13.1g/dL (13.0-17.5) Hematocrit 46.4% (39.0-53.0) 38.2% (39.0-53.0) Mean Corpuscular Volume 92fL (79-100) 91fL (79-100) Mean Corpuscular Hemoglobin 31pg (25-35) 31pg (25-35) Mean Corpuscular Hemoglobin Concent 34g/dL (31-37) 34g/dL (31-37) Red Cell Distribution Width 14.6% (11.5-14.5) 14.4% (11.5-14.5) Platelet Count 293x10^3/uL (140-400) 237x10^3/uL (140-400) Neutrophils (%) (Auto) 58% (31-73) 47% (31-73) Lymphocytes (%) (Auto) 30% (24-48) 40% (24-48) Monocytes (%) (Auto) 10% (0-9) 10% (0-9) Eosinophils (%) (Auto) 1% (0-3) 2% (0-3) Basophils (%) (Auto) 1% (0-3) 1% (0-3) Neutrophils # (Auto) 4.6x10^3uL (1.8-7.7) 3.5x10^3uL (1.8-7.7) Lymphocytes # (Auto) 2.4x10^3/uL (1.0-4.8) 3.0x10^3/uL (1.0-4.8) Monocytes # (Auto) 0.8x10^3/uL (0.0-1.1) 0.8x10^3/uL (0.0-1.1) Eosinophils # (Auto) 0.1x10^3/uL (0.0-0.7) 0.1x10^3/uL (0.0-0.7) Basophils # (Auto) 0.1x10^3/uL (0.0-0.2) 0.1x10^3/uL (0.0-0.2) Sodium Level 144mmol/L (136-145) 145mmol/L (136-145) Potassium Level 4.2mmol/L (3.5-5.1) 4.1mmol/L (3.5-5.1) Chloride Level 106mmol/L (98-107) 110mmol/L (98-107) Carbon Dioxide Level 25mmol/L (21-32) 24mmol/L (21-32) Anion Gap 13 (6-14) 11 (6-14) Blood Urea Nitrogen 7mg/dL (8-26) 9mg/dL (8-26) Creatinine 1.1mg/dL (0.7-1.3) 1.0mg/dL (0.7-1.3) Estimated GFR (Cockcroft-Gault) 74.9 83.6 BUN/Creatinine Ratio 6 (6-20) Glucose Level 96mg/dL (70-99) 87mg/dL (70-99) Calcium Level 9.8mg/dL (8.5-10.1) 8.7mg/dL (8.5-10.1) Total Bilirubin 0.5mg/dL (0.2-1.0) Aspartate Amino Transf (AST/SGOT) 21U/L (15-37) Alanine Aminotransferase (ALT/SGPT) 51U/L (16-63) Alkaline Phosphatase 80U/L (46-116) Total Protein 8.6g/dL (6.4-8.2) Albumin 4.5g/dL (3.4-5.0) Albumin/Globulin Ratio 1.1 (1.0-1.7) Lipase 328U/L (73-393) Urine Collection Type Unknown Urine Color Yellow Urine Clarity Cloudy Urine pH 6.5 Urine Specific [place] <=1.005 Urine Protein Negativemg/dL (NEG-TRACE) Urine Glucose (UA) Negativemg/dL (NEG) Urine Ketones (Stick) Negativemg/dL (NEG) Urine Blood Negative (NEG) Urine Nitrite Negative (NEG) Urine Bilirubin Negative (NEG) Urine Urobilinogen Dipstick 0.2mg/dL (0.2 mg/dL) Urine Leukocyte Esterase Trace (NEG) Urine RBC 0/HPF (0-2) Urine WBC 5-10/HPF (0-4) Urine Squamous Epithelial Cells Few/LPF Urine Bacteria 0/HPF (0-FEW) Urine Mucus Slight/LPF Images Images CT abdomen: IMPRESSION The appendix is apparently enlarged measuring 8-9 millimeters in diameter, although no significant periappendiceal inflammation is seen. This size is considered equivocal for acute appendicitis, although there is no surrounding fat inflammation. Recommend clinical correlation. Assessment/Plan Assessment/Plan Abdominal pain, mostly LLQ with chronic component. Associated chronic nausea, vomiting, weight loss; has had thorough GI evaluation, ?etiology. Recent CT reviewed, equivocal for appendicitis, no inflammatory changes seen, WBC normal , pain worse in LLQ, appendicitis seems unlikely, however I did explain that unable to be absolutely certain short of appy with pathologic assessment. Plan for now continued observation, serial exam/WBC, GI consult. If Rt sided pain worsens or WBC bumps, would consider repeat CT vs laparoscopy. SUZETTE BAZZI MD Feb 22, 2017 10:12
[2017-02-22 10:47] VITALS: BP 121/66
--- NOTE | 2017-02-22 11:01 | PDOC ---
PROGRESS NOTES Chief Complaint Chief Complaint Intractable LLQ pain ASSESSMENT AND PLAN: 1. LLQ pain: severe, recurrent, w/o any correlate on CT or colonoscopies. most recent eval by Dr Deleon in Oct 2016. add.l studies pending . 2. N/V: on Reglan/Zofran PRN. states promethazine IV works best for him... 3. Appendix abn: borderline enlarged w/o stigmata of inflammation, nl WBC. doubt appendicitis. appreciate Dr Cuevas's input 4. Pain control: claims not good on .5mg q2h dilaudid, while moving about in bed w/o difficulties. will give him the benefit of the doubt and increase dose. Vitals Vitals Vital Signs Date Time Temp Pulse Resp B/P Pulse Ox O2 Delivery O2 Flow Rate FiO2 02/22/17 10:47 99.0 67 18 121/66 98 Room Air 99.0 Physical Exam General: Alert, Oriented X3, Cooperative Heart: Regular rate Lungs: Clear Abdomen: Soft, Other (tenderness in the low abdomen, worse in LLQ, no guarding on right side, no peritoneal signs) Extremities: No clubbing, No cyanosis Skin: No rashes Labs LABS Laboratory Tests Test 02/21/17 19:20 02/21/17 20:15 02/22/17 03:45 White Blood Count 7.9x10^3/uL (4.0-11.0) 7.5x10^3/uL (4.0-11.0) Red Blood Count 5.04x10^6/uL (4.30-5.70) 4.20x10^6/uL (4.30-5.70) Hemoglobin 15.7g/dL (13.0-17.5) 13.1g/dL (13.0-17.5) Hematocrit 46.4% (39.0-53.0) 38.2% (39.0-53.0) Mean Corpuscular Volume 92fL (79-100) 91fL (79-100) Mean Corpuscular Hemoglobin 31pg (25-35) 31pg (25-35) Mean Corpuscular Hemoglobin Concent 34g/dL (31-37) 34g/dL (31-37) Red Cell Distribution Width 14.6% (11.5-14.5) 14.4% (11.5-14.5) Platelet Count 293x10^3/uL (140-400) 237x10^3/uL (140-400) Neutrophils (%) (Auto) 58% (31-73) 47% (31-73) Lymphocytes (%) (Auto) 30% (24-48) 40% (24-48) Monocytes (%) (Auto) 10% (0-9) 10% (0-9) Eosinophils (%) (Auto) 1% (0-3) 2% (0-3) Basophils (%) (Auto) 1% (0-3) 1% (0-3) Neutrophils # (Auto) 4.6x10^3uL (1.8-7.7) 3.5x10^3uL (1.8-7.7) Lymphocytes # (Auto) 2.4x10^3/uL (1.0-4.8) 3.0x10^3/uL (1.0-4.8) Monocytes # (Auto) 0.8x10^3/uL (0.0-1.1) 0.8x10^3/uL (0.0-1.1) Eosinophils # (Auto) 0.1x10^3/uL (0.0-0.7) 0.1x10^3/uL (0.0-0.7) Basophils # (Auto) 0.1x10^3/uL (0.0-0.2) 0.1x10^3/uL (0.0-0.2) Sodium Level 144mmol/L (136-145) 145mmol/L (136-145) Potassium Level 4.2mmol/L (3.5-5.1) 4.1mmol/L (3.5-5.1) Chloride Level 106mmol/L (98-107) 110mmol/L (98-107) Carbon Dioxide Level 25mmol/L (21-32) 24mmol/L (21-32) Anion Gap 13 (6-14) 11 (6-14) Blood Urea Nitrogen 7mg/dL (8-26) 9mg/dL (8-26) Creatinine 1.1mg/dL (0.7-1.3) 1.0mg/dL (0.7-1.3) Estimated GFR (Cockcroft-Gault) 74.9 83.6 BUN/Creatinine Ratio 6 (6-20) Glucose Level 96mg/dL (70-99) 87mg/dL (70-99) Calcium Level 9.8mg/dL (8.5-10.1) 8.7mg/dL (8.5-10.1) Total Bilirubin 0.5mg/dL (0.2-1.0) Aspartate Amino Transf (AST/SGOT) 21U/L (15-37) Alanine Aminotransferase (ALT/SGPT) 51U/L (16-63) Alkaline Phosphatase 80U/L (46-116) Total Protein 8.6g/dL (6.4-8.2) Albumin 4.5g/dL (3.4-5.0) Albumin/Globulin Ratio 1.1 (1.0-1.7) Lipase 328U/L (73-393) Urine Collection Type Unknown Urine Color Yellow Urine Clarity Cloudy Urine pH 6.5 Urine Specific [place] <=1.005 Urine Protein Negativemg/dL (NEG-TRACE) Urine Glucose (UA) Negativemg/dL (NEG) Urine Ketones (Stick) Negativemg/dL (NEG) Urine Blood Negative (NEG) Urine Nitrite Negative (NEG) Urine Bilirubin Negative (NEG) Urine Urobilinogen Dipstick 0.2mg/dL (0.2 mg/dL) Urine Leukocyte Esterase Trace (NEG) Urine RBC 0/HPF (0-2) Urine WBC 5-10/HPF (0-4) Urine Squamous Epithelial Cells Few/LPF Urine Bacteria 0/HPF (0-FEW) Urine Mucus Slight/LPF Review of Systems Review of Systems feels 'horrible', pain poorly controlled. continues with diarrhea (chronic) LUIS ALAN MD Feb 22, 2017 11:01
--- NOTE | 2017-02-22 12:35 | PDOC2 ---
GI CONSULT Reason For Consult: LLQ pain HPI: HPI: 36 y/o male known to Dr. Deleon. Extensive GI workup for abd pain ( historically LLQ), diarrhea, n/v, weight loss. Has also seen rheumatology, ID, and surgery. H/o diverticulitis s/p bowel resection. Currently taking Colestid , Zofran or promethazine, and Zantac. Denies taking anything for pain. H/o diverticulitis s/p resection. Referred to GI for second opinion, no appointment made yet. In 10/2016: EGD and colonoscopy: normal esophagus, chronic gastritis, nodularity in duodenum , normal colonic mucosa, internal hemorrhoids. TSH, vit B12, and cortisol WNL; SANDHYA neg; Crypto and Giardia neg. SBS and CTA unrevealing. In 09/2016: Celiac serology, fecal fat WNL. Since last at [facility] in 10/2016, reports ongoing and unchanged symptoms ("I haven' t worked since September") until lower abd pain became significantly worse yesterday. Pain began as usual in LLQ, now apparently shifting to RLQ. Also feels feverish. CT w/o contrast equivocal for appendicitis. Dr. Cuevas saw this morning w/ plans to observe, repeat CT vs appendectomy depending on course/ labs. PMH: PMH: diverticulitis s/p colon resection, cholecystectomy, HTN, depression/anxiety FH: Family History: No pertinent hx Social History: Smoke: No (chewing tobacco) ALCOHOL: social Drugs: None ROS: GEN: +fever HEENT: Denies blurred vision, sore throat CV: Denies chest pain RESP: Denies shortness of air, cough GI: Per HPI : Denies hematuria, dysuria ENDO: +weight loss NEURO: Denies confusion, dizziness MSK: Denies weakness, joint pain/swelling SKIN: Denies jaundice, pruritus VItals: Vitals: Vital Signs Date Time Temp Pulse Resp B/P Pulse Ox O2 Delivery O2 Flow Rate FiO2 02/22/17 10:56 98 Room Air 02/22/17 10:47 99.0 67 18 121/66 99.0 Labs: Labs: Laboratory Tests Test 02/21/17 19:20 02/21/17 20:15 02/22/17 03:45 White Blood Count 7.9x10^3/uL (4.0-11.0) 7.5x10^3/uL (4.0-11.0) Red Blood Count 5.04x10^6/uL (4.30-5.70) 4.20x10^6/uL (4.30-5.70) Hemoglobin 15.7g/dL (13.0-17.5) 13.1g/dL (13.0-17.5) Hematocrit 46.4% (39.0-53.0) 38.2% (39.0-53.0) Mean Corpuscular Volume 92fL (79-100) 91fL (79-100) Mean Corpuscular Hemoglobin 31pg (25-35) 31pg (25-35) Mean Corpuscular Hemoglobin Concent 34g/dL (31-37) 34g/dL (31-37) Red Cell Distribution Width 14.6% (11.5-14.5) 14.4% (11.5-14.5) Platelet Count 293x10^3/uL (140-400) 237x10^3/uL (140-400) Neutrophils (%) (Auto) 58% (31-73) 47% (31-73) Lymphocytes (%) (Auto) 30% (24-48) 40% (24-48) Monocytes (%) (Auto) 10% (0-9) 10% (0-9) Eosinophils (%) (Auto) 1% (0-3) 2% (0-3) Basophils (%) (Auto) 1% (0-3) 1% (0-3) Neutrophils # (Auto) 4.6x10^3uL (1.8-7.7) 3.5x10^3uL (1.8-7.7) Lymphocytes # (Auto) 2.4x10^3/uL (1.0-4.8) 3.0x10^3/uL (1.0-4.8) Monocytes # (Auto) 0.8x10^3/uL (0.0-1.1) 0.8x10^3/uL (0.0-1.1) Eosinophils # (Auto) 0.1x10^3/uL (0.0-0.7) 0.1x10^3/uL (0.0-0.7) Basophils # (Auto) 0.1x10^3/uL (0.0-0.2) 0.1x10^3/uL (0.0-0.2) Sodium Level 144mmol/L (136-145) 145mmol/L (136-145) Potassium Level 4.2mmol/L (3.5-5.1) 4.1mmol/L (3.5-5.1) Chloride Level 106mmol/L (98-107) 110mmol/L (98-107) Carbon Dioxide Level 25mmol/L (21-32) 24mmol/L (21-32) Anion Gap 13 (6-14) 11 (6-14) Blood Urea Nitrogen 7mg/dL (8-26) 9mg/dL (8-26) Creatinine 1.1mg/dL (0.7-1.3) 1.0mg/dL (0.7-1.3) Estimated GFR (Cockcroft-Gault) 74.9 83.6 BUN/Creatinine Ratio 6 (6-20) Glucose Level 96mg/dL (70-99) 87mg/dL (70-99) Calcium Level 9.8mg/dL (8.5-10.1) 8.7mg/dL (8.5-10.1) Total Bilirubin 0.5mg/dL (0.2-1.0) Aspartate Amino Transf (AST/SGOT) 21U/L (15-37) Alanine Aminotransferase (ALT/SGPT) 51U/L (16-63) Alkaline Phosphatase 80U/L (46-116) Total Protein 8.6g/dL (6.4-8.2) Albumin 4.5g/dL (3.4-5.0) Albumin/Globulin Ratio 1.1 (1.0-1.7) Lipase 328U/L (73-393) Urine Collection Type Unknown Urine Color Yellow Urine Clarity Cloudy Urine pH 6.5 Urine Specific [place] <=1.005 Urine Protein Negativemg/dL (NEG-TRACE) Urine Glucose (UA) Negativemg/dL (NEG) Urine Ketones (Stick) Negativemg/dL (NEG) Urine Blood Negative (NEG) Urine Nitrite Negative (NEG) Urine Bilirubin Negative (NEG) Urine Urobilinogen Dipstick 0.2mg/dL (0.2 mg/dL) Urine Leukocyte Esterase Trace (NEG) Urine RBC 0/HPF (0-2) Urine WBC 5-10/HPF (0-4) Urine Squamous Epithelial Cells Few/LPF Urine Bacteria 0/HPF (0-FEW) Urine Mucus Slight/LPF Allergies: Coded Allergies: No Known Drug Allergies (Unverified , 12/05/13) Medications: Current Medications Medications (Trade) Dose Ordered Sig/Ria Route PRN Reason Start Time Stop Time Status Last Admin Dose Admin Hydromorphone HCl 1 mg 1 mg 1X ONCE IV 02/21/17 19:15 02/21/17 19:16 DC 02/21/17 19:27 Sodium Chloride (Iv Sodium Chloride 0.9% 1000ml Bag) 1,000 ml @ 1,000 mls/hr 1X ONCE IV 02/21/17 19:15 02/21/17 20:14 DC 02/21/17 19:27 Ondansetron HCl (Zofran) 4 mg 1X ONCE IV 02/21/17 19:15 02/21/17 19:16 DC 02/21/17 19:27 Hydromorphone HCl 1 mg 1 mg PRN Q15MIN PRN IV/SQ PAIN GREATER THAN 3/10 02/21/17 20:15 02/21/17 22:46 DC 02/21/17 21:41 Sodium Chloride (Iv Sodium Chloride 0.9% 1000ml Bag) 1,000 ml @ 150 mls/hr Q6H40M IV 02/21/17 20:17 02/22/17 20:16 02/22/17 09:37 Ondansetron HCl (Zofran) 4 mg PRN Q8HRS PRN IV NAUSEA/VOMITING 02/21/17 22:45 02/22/17 05:01 Hydromorphone HCl (Dilaudid) 0.5 mg Q2H PRN IV pain 02/21/17 22:45 02/22/17 10:19 Metoclopramide HCl (Reglan) 5 mg PRN Q8HRS PRN IV NAUSEA/VOMITING 02/22/17 00:00 02/22/17 10:20 Imaging: Imaging: CT A/P w/o contrast IMPRESSION The appendix is apparently enlarged measuring 8-9 millimeters in diameter, although no significant periappendiceal inflammation is seen. This size is considered equivocal for acute appendicitis, although there is no surrounding fat inflammation. Recommend clinical correlation. PE: GEN: NAD HEENT: Atraumatic, PERRL LUNGS: CTAB HEART: RRR ABD: NABS, S/ND, suprapubic/RLQ > LLQ EXTREMITY: No edema SKIN: No rashes, no jaundice NEURO/PSYCH: A & O 3 A/P: A/P: Chronic abd pain, n/v, diarrhea, weight loss -extensive GI workup per HPI, referred to [facility] for second opinion, no appointment yet -readmitted w/ lower abd pain which began as LLQ and is spreading to RLQ -CT ?appendicitis, surgery following --->GI consult, observe -- Reviewed w/ Dr. Deleon - agree w/ observation. Will additionally check stool for porphyrins - d/w lab, entered as misc. order, will be sent to another facility. DONNY SMITH Feb 22, 2017 12:35
[2017-02-22 15:00] VITALS: BP 136/78
[2017-02-22] MEDS ORDERED: HYDROMORPHONE 2 MG/ML VIAL. IV ONE (15:00)
[2017-02-22] MEDS ORDERED: ALPRAZOLAM 1 MG TABLET PO PRN (19:15)
[2017-02-22 19:30] VITALS: BP 128/78
[2017-02-22 23:30] VITALS: BP 118/78
[2017-02-23] MEDS: HYDROMORPHONE 2 MG/ML VIAL. IV PRN ×6 (02:05→15:10)
[2017-02-23 03:30] VITALS: BP 127/55
[2017-02-23 04:53] LABS: BASO % 1 % (0-3); EOS % 2 % (0-3); HEMATOCRIT 38.5 % (39.0-53.0); HEMOGLOBIN 13.1 g/dL (13.0-17.5); LYMPH # 2.4 x10^3/uL (1.0-4.8); LYMPH % 40 % (24-48); MEAN CORPUSCULAR HEMOGLOBIN 31 pg (25-35); MEAN CORPUSCULAR HGB CONC 34 g/dL (31-37); MEAN CORPUSCULAR VOLUME 92 fL (79-100); MONO % 10 % (0-9); NEUT % 47 % (31-73); PLATELET COUNT 223 x10^3/uL (140-400); RED BLOOD COUNT 4.21 x10^6/uL (4.30-5.70); RED CELL DISTRIBUTION WIDTH 14.5 % (11.5-14.5); WHITE BLOOD COUNT 6.1 x10^3/uL (4.0-11.0)
[2017-02-23 07:00] VITALS: BP 100/62
[2017-02-23] MEDS: METOCLOPRAMIDE HCL 10 MG/2 ML VIAL. IV PRN ×2 (08:00→15:10)
[2017-02-23] MEDS ORDERED: OXYC10TA32 PO (08:07)
--- NOTE | 2017-02-23 10:42 | PDOC ---
PROGRESS NOTES Subjective Subjective still with nausea, pain more prominent in RLQ Objective Objective Vital Signs Date Time Temp Pulse Resp B/P Pulse Ox O2 Delivery O2 Flow Rate FiO2 02/23/17 08:00 Room Air 02/23/17 07:56 20 02/23/17 07:00 97.5 57 100/62 100 97.5 Intake and Output 02/23/17 07:00 Intake Total 2400 ml Output Total 400 ml Balance 2000 ml Intake Oral 1400 ml IV Total 1000 ml Output Urine Total 400 ml # Voids 3 Physical Exam Abdomen: Soft (tender RLQ) Heart: Regular rate Extremities: No clubbing, No cyanosis, No edema General: Alert, Oriented X3, Cooperative HEENT: Atraumatic Lungs: Clear to auscultation Assessment Assessment Problems Medical Problems: (1) Abdominal pain Status: Acute Pain more in RLQ, WBC remains normal. Will repeat CT scan to see if any change from prior, ?acute appendicitis Comment Review of Relevant I have reviewed the following items rimma (where applicable) has been applied. Labs Laboratory Tests Test 02/21/17 19:20 02/21/17 20:15 02/22/17 03:45 02/23/17 03:40 White Blood Count 7.9x10^3/uL (4.0-11.0) 7.5x10^3/uL (4.0-11.0) 6.1x10^3/uL (4.0-11.0) Red Blood Count 5.04x10^6/uL (4.30-5.70) 4.20x10^6/uL (4.30-5.70) 4.21x10^6/uL (4.30-5.70) Hemoglobin 15.7g/dL (13.0-17.5) 13.1g/dL (13.0-17.5) 13.1g/dL (13.0-17.5) Hematocrit 46.4% (39.0-53.0) 38.2% (39.0-53.0) 38.5% (39.0-53.0) Mean Corpuscular Volume 92fL (79-100) 91fL (79-100) 92fL (79-100) Mean Corpuscular Hemoglobin 31pg (25-35) 31pg (25-35) 31pg (25-35) Mean Corpuscular Hemoglobin Concent 34g/dL (31-37) 34g/dL (31-37) 34g/dL (31-37) Red Cell Distribution Width 14.6% (11.5-14.5) 14.4% (11.5-14.5) 14.5% (11.5-14.5) Platelet Count 293x10^3/uL (140-400) 237x10^3/uL (140-400) 223x10^3/uL (140-400) Neutrophils (%) (Auto) 58% (31-73) 47% (31-73) 47% (31-73) Lymphocytes (%) (Auto) 30% (24-48) 40% (24-48) 40% (24-48) Monocytes (%) (Auto) 10% (0-9) 10% (0-9) 10% (0-9) Eosinophils (%) (Auto) 1% (0-3) 2% (0-3) 2% (0-3) Basophils (%) (Auto) 1% (0-3) 1% (0-3) 1% (0-3) Neutrophils # (Auto) 4.6x10^3uL (1.8-7.7) 3.5x10^3uL (1.8-7.7) 2.8x10^3uL (1.8-7.7) Lymphocytes # (Auto) 2.4x10^3/uL (1.0-4.8) 3.0x10^3/uL (1.0-4.8) 2.4x10^3/uL (1.0-4.8) Monocytes # (Auto) 0.8x10^3/uL (0.0-1.1) 0.8x10^3/uL (0.0-1.1) 0.6x10^3/uL (0.0-1.1) Eosinophils # (Auto) 0.1x10^3/uL (0.0-0.7) 0.1x10^3/uL (0.0-0.7) 0.1x10^3/uL (0.0-0.7) Basophils # (Auto) 0.1x10^3/uL (0.0-0.2) 0.1x10^3/uL (0.0-0.2) 0.0x10^3/uL (0.0-0.2) Sodium Level 144mmol/L (136-145) 145mmol/L (136-145) Potassium Level 4.2mmol/L (3.5-5.1) 4.1mmol/L (3.5-5.1) Chloride Level 106mmol/L (98-107) 110mmol/L (98-107) Carbon Dioxide Level 25mmol/L (21-32) 24mmol/L (21-32) Anion Gap 13 (6-14) 11 (6-14) Blood Urea Nitrogen 7mg/dL (8-26) 9mg/dL (8-26) Creatinine 1.1mg/dL (0.7-1.3) 1.0mg/dL (0.7-1.3) Estimated GFR (Cockcroft-Gault) 74.9 83.6 BUN/Creatinine Ratio 6 (6-20) Glucose Level 96mg/dL (70-99) 87mg/dL (70-99) Calcium Level 9.8mg/dL (8.5-10.1) 8.7mg/dL (8.5-10.1) Total Bilirubin 0.5mg/dL (0.2-1.0) Aspartate Amino Transf (AST/SGOT) 21U/L (15-37) Alanine Aminotransferase (ALT/SGPT) 51U/L (16-63) Alkaline Phosphatase 80U/L (46-116) Total Protein 8.6g/dL (6.4-8.2) Albumin 4.5g/dL (3.4-5.0) Albumin/Globulin Ratio 1.1 (1.0-1.7) Lipase 328U/L (73-393) Urine Collection Type Unknown Urine Color Yellow Urine Clarity Cloudy Urine pH 6.5 Urine Specific [place] <=1.005 Urine Protein Negativemg/dL (NEG-TRACE) Urine Glucose (UA) Negativemg/dL (NEG) Urine Ketones (Stick) Negativemg/dL (NEG) Urine Blood Negative (NEG) Urine Nitrite Negative (NEG) Urine Bilirubin Negative (NEG) Urine Urobilinogen Dipstick 0.2mg/dL (0.2 mg/dL) Urine Leukocyte Esterase Trace (NEG) Urine RBC 0/HPF (0-2) Urine WBC 5-10/HPF (0-4) Urine Squamous Epithelial Cells Few/LPF Urine Bacteria 0/HPF (0-FEW) Urine Mucus Slight/LPF Laboratory Tests Test 02/23/17 03:40 White Blood Count 6.1x10^3/uL (4.0-11.0) Red Blood Count 4.21x10^6/uL (4.30-5.70) Hemoglobin 13.1g/dL (13.0-17.5) Hematocrit 38.5% (39.0-53.0) Mean Corpuscular Volume 92fL (79-100) Mean Corpuscular Hemoglobin 31pg (25-35) Mean Corpuscular Hemoglobin Concent 34g/dL (31-37) Red Cell Distribution Width 14.5% (11.5-14.5) Platelet Count 223x10^3/uL (140-400) Neutrophils (%) (Auto) 47% (31-73) Lymphocytes (%) (Auto) 40% (24-48) Monocytes (%) (Auto) 10% (0-9) Eosinophils (%) (Auto) 2% (0-3) Basophils (%) (Auto) 1% (0-3) Neutrophils # (Auto) 2.8x10^3uL (1.8-7.7) Lymphocytes # (Auto) 2.4x10^3/uL (1.0-4.8) Monocytes # (Auto) 0.6x10^3/uL (0.0-1.1) Eosinophils # (Auto) 0.1x10^3/uL (0.0-0.7) Basophils # (Auto) 0.0x10^3/uL (0.0-0.2) Microbiology 02/21/17 Urine Culture - Preliminary, Resulted 02/21/17 Urine Culture Result 1 (GRETA) - Preliminary, Resulted Medications Current Medications Hydromorphone HCl 1 mg 1 mg 1X ONCE IV Last administered on 02/21/17t 19:27; Start 02/21/17 at 19:15; Stop 02/21/17 at 19:16; Status DC Sodium Chloride (Iv Sodium Chloride 0.9% 1000ml Bag) 1,000 ml @ 1,000 mls/hr 1X ONCE IV Last administered on 02/21/17 19:27; Start 02/21/17 at 19:15; Stop 02/21/17 at 20:14; Status DC Ondansetron HCl (Zofran) 4 mg 1X ONCE IV Last administered on 02/21/17 19:27 ; Start 02/21/17 at 19:15; Stop 02/21/17 at 19:16; Status DC Hydromorphone HCl (Dilaudid) 1 mg PRN Q15MIN PRN IV/SQ PAIN GREATER THAN 3/10 Last administered on 02/21/17 21:41; Start 02/21/17 at 20:15; Stop 02/21/17 at 22:46; Status DC Ondansetron HCl (Zofran) 4 mg PRN Q8HRS PRN IV NAUSEA/VOMITING; Start 02/21/17 at 20:30; Stop 02/21/17 at 22:46; Status DC Fentanyl Citrate 50 mcg 50 mcg PRN Q1HR PRN IV PAIN; Start 02/21/17 at 20:30; Stop 02/21/17 at 22:46; Status DC Sodium Chloride (Iv Sodium Chloride 0.9% 1000ml Bag) 1,000 ml @ 150 mls/hr Q6H40M IV Last administered on 02/22/17 17:56; Start 02/21/17 at 20:17; Stop 02/22/17 at 20:16; Status DC Ondansetron HCl (Zofran) 4 mg PRN Q8HRS PRN IV NAUSEA/VOMITING 1ST CHOICE Last administered on 02/22/17 23:03; Start 02/21/17 at 22:45 Hydromorphone HCl (Dilaudid) 0.5 mg Q2H PRN IV pain Last administered on 12:44; Start 02/21/17 at 22:45; Stop 02/22/17 at 15:12; Status DC Metoclopramide HCl (Reglan) 5 mg PRN Q8HRS PRN PO NAUSEA/VOMITING; Start at 22:45 Metoclopramide HCl (Reglan) 5 mg PRN Q8HRS PRN IV NAUSEA/VOMITING 2ND CHOICE Last administered on 02/23/17 08:00; Start 02/22/17 at 00:00 Hydromorphone HCl (Dilaudid) 1 mg Q2H PRN IV pain Last administered on 07:56; Start 02/22/17 at 16:45 Hydromorphone HCl (Dilaudid) 2 mg 1X ONCE IV Last administered on 02/22/17 15 :48; Start 02/22/17 at 15:00; Stop 02/22/17 at 15:14; Status DC Alprazolam (Xanax) 1 mg QHS PRN PO ANXIETY / insomnia Last administered on 02/22 23:02; Start 02/22/17 at 19:15 Active Scripts Active Zofran Odt (Ondansetron) 4 Mg Tab.rapdis 1 Tab SL Q6HRS PRN Reported Oxycontin (Oxycodone HCl) 10 Mg Tab.er.12h 10 Mg PO BID PRN Transderm-Scop (Scopolamine) 1 Each Patch.td72 1 Patch TP Q3DAYS PRN Colestipol Hcl 1 Gm Tablet 1 Gm PO BID Vitals/I & O Vital Sign - Last 24 Hours 02/22/17 02/22/17 02/22/17 02/22/17 10:47 12:44 13:47 15:00 Temp 99.0 97.9 99.0 97.9 Pulse 67 56 Resp 18 18 B/P 121/66 136/78 Pulse Ox 98 98 98 99 O2 Delivery Room Air Room Air Room Air Room Air 02/22/17 02/22/17 02/22/17 02/22/17 15:48 17:57 18:20 18:24 Pulse Ox 99 99 99 99 O2 Delivery Room Air Room Air Room Air Room Air 02/22/17 02/22/17 02/22/17 02/23/17 19:30 20:00 23:30 03:30 Temp 99.1 97.7 97.5 99.1 97.7 97.5 Pulse 69 63 54 Resp 18 18 18 B/P 128/78 118/78 127/55 Pulse Ox 100 100 96 O2 Delivery Room Air Room Air Room Air Room Air 02/23/17 02/23/17 02/23/17 07:00 07:56 08:00 Temp 97.5 97.5 Pulse 57 Resp 18 20 B/P 100/62 Pulse Ox 100 O2 Delivery Room Air Room Air Room Air Intake and Output 02/22/17 02/22/17 02/23/17 15:00 23:00 07:00 Intake Total 500 ml 1900 ml Output Total 400 ml Balance 100 ml 1900 ml SUZETTE BAZZI MD Feb 23, 2017 10:42
[2017-02-23 11:00] VITALS: BP 113/63
--- NOTE | 2017-02-23 11:23 | PDOC ---
PROGRESS NOTES Chief Complaint Chief Complaint Intractable LLQ pain ASSESSMENT AND PLAN: 1. LLQ pain: now has moved to right. wants appendix out. rpt CT done: normal appendix 2. N/V: resolved 3. Psychosomatization: discussed with him: now freely admits that he has been dx.ed with psychiatric d/o in his youth, and has had his most recent inpt. psych admit at [facility] in Sep 2016, for work-related PTSD, but admits to anxiety/ depression as well. agreeable to F/U with Psych at [facility]. requests xanax for sleep. short script given Vitals Vitals Vital Signs Date Time Temp Pulse Resp B/P Pulse Ox O2 Delivery O2 Flow Rate FiO2 02/23/17 11:16 22 100 Room Air 02/23/17 07:00 97.5 57 100/62 97.5 Physical Exam General: Alert, Oriented X3, Cooperative Heart: Regular rate Lungs: Clear Abdomen: Soft (tender RLQ) Extremities: No clubbing, No cyanosis, No edema Skin: No rashes Labs LABS Laboratory Tests Test 02/23/17 03:40 White Blood Count 6.1x10^3/uL (4.0-11.0) Red Blood Count 4.21x10^6/uL (4.30-5.70) Hemoglobin 13.1g/dL (13.0-17.5) Hematocrit 38.5% (39.0-53.0) Mean Corpuscular Volume 92fL (79-100) Mean Corpuscular Hemoglobin 31pg (25-35) Mean Corpuscular Hemoglobin Concent 34g/dL (31-37) Red Cell Distribution Width 14.5% (11.5-14.5) Platelet Count 223x10^3/uL (140-400) Neutrophils (%) (Auto) 47% (31-73) Lymphocytes (%) (Auto) 40% (24-48) Monocytes (%) (Auto) 10% (0-9) Eosinophils (%) (Auto) 2% (0-3) Basophils (%) (Auto) 1% (0-3) Neutrophils # (Auto) 2.8x10^3uL (1.8-7.7) Lymphocytes # (Auto) 2.4x10^3/uL (1.0-4.8) Monocytes # (Auto) 0.6x10^3/uL (0.0-1.1) Eosinophils # (Auto) 0.1x10^3/uL (0.0-0.7) Basophils # (Auto) 0.0x10^3/uL (0.0-0.2) Review of Systems Review of Systems pain now on right, wants appendix out... LUIS ALAN MD Feb 23, 2017 11:23
[2017-02-23] MEDS ORDERED: IOHEXOL 240 MG/ML 50ML VIAL. PO ONE (11:30)
[2017-02-23] MEDS ORDERED: CONTRAST GIVEN MC PRN (11:30)
[2017-02-23] MEDS ORDERED: IOHEXOL 300 MG/ML 75 ML VIAL IV ONE (11:30)
--- NOTE | 2017-02-23 12:37 | PDOC ---
Subjective: Subjective: Abd pain - periumbilical to RLQ. No vomiting or stools - just nausea. Objective: Objective: Per RN - pt reports was on oxycodone and Xanax at home, ran out prior to admission, "need to find someone else to prescribe them." To me reports no pain meds of any kinds since Oct which is what he said yesterday. D/w Dr. Hsu - ?psych issues Reviewed Dr. Cuevas's note - repeat CT today. Vital Signs: Vital Signs Date Time Temp Pulse Resp B/P Pulse Ox O2 Delivery O2 Flow Rate FiO2 02/23/17 11:16 22 100 Room Air 02/23/17 11:00 97.9 62 113/63 97.9 Labs: Laboratory Tests Test 02/23/17 03:40 White Blood Count 6.1x10^3/uL Red Blood Count 4.21x10^6/uL Hemoglobin 13.1g/dL Hematocrit 38.5% Mean Corpuscular Volume 92fL Mean Corpuscular Hemoglobin 31pg Mean Corpuscular Hemoglobin Concent 34g/dL Red Cell Distribution Width 14.5% Platelet Count 223x10^3/uL Neutrophils (%) (Auto) 47% Lymphocytes (%) (Auto) 40% Monocytes (%) (Auto) 10% Eosinophils (%) (Auto) 2% Basophils (%) (Auto) 1% Neutrophils # (Auto) 2.8x10^3uL Lymphocytes # (Auto) 2.4x10^3/uL Monocytes # (Auto) 0.6x10^3/uL Eosinophils # (Auto) 0.1x10^3/uL Basophils # (Auto) 0.0x10^3/uL PE: GEN: NAD LUNGS: CTAB HEART: RRR ABD: BS+, RLQ tenderness, less so periumbilical and LLQ NEURO/PSYCH: A & O 3, talking on phone A/P: Chronic abd pain, n/v, diarrhea, weight loss -extensive GI workup including imaging, endoscopy, labs; referred to [facility] for second opinion -porphyria r/o in process -surg following re: ?appendicitis -- Await interval CT. DONNY SMITH Feb 23, 2017 12:37
[2017-02-23] MEDS: ONDANSETRON PF 4 MG/2 ML VIAL. IV PRN (12:52)
--- NOTE | 2017-02-23 13:14 | RAD ---
Indication severe right lower quadrant pain. Axial images through the abdomen and pelvis were obtained. Both IV and oral contrast were administered. 75 cc of Omnipaque 300 was administered intravenously. Note is made of the noncontrast examination 2 days ago and the examination 01/27/2017. No acute finding is seen at either lung base. There is a small nodule in the right lung, image 7 series 2 similar to a study 05/28/2016 as well as a study 06/10/2014. The liver and spleen appear unremarkable. Clips are noted in the gallbladder fossa. The pancreas kidneys and adrenal glands appear normal apart from occasional minute left renal cysts. The appendix is seen in the right lower quadrant and appears normal. No mass inflammatory process or acute finding in the abdomen or pelvis is seen. IMPRESSION: No acute finding seen in the abdomen or pelvis. Normal appendix PQRS Compliance Statement: One or more of the following individualized dose reduction techniques were utilized for this examination: 1. Automated exposure control 2. Adjustment of the mA and/or kV according to patient size 3. Use of iterative reconstruction technique
[2017-02-23] MEDS ORDERED: OXYC5CAP3 PO (13:56)
[2017-02-23] MEDS ORDERED: ALPR1TAB2 PO (13:56)
[2017-02-23 15:00] VITALS: BP 111/71
--- NOTE | 2017-02-24 04:55 | DS ---
DATE OF DISCHARGE: 02/23/2017 CHIEF COMPLAINT: Abdominal pain. HOSPITAL COURSE: The patient is a 36-year-old gentleman with recurrent abdominal pain in the left lower quadrant, which is intractable. He had been evaluated in October for same. Dr. Deleon scoped him, no etiology was ever found. Once again CAT scan was obtained here without any significant findings for mild borderline enlargement of the appendix without any other symptoms of appendicitis. Dr. Cuevas from Surgery was involved as well. When it was suggested to the patient that this may be psychosomatic, he finally related that this actually had been suggested in the past. He has been seen for anxiety, depression with GI symptoms in the past as well as PTSD. Most recent inpatient psych admission was actually at [facility] in September. The patient was therefore discharged. To assure him that no further GI issues were present, a repeat CT was done which indeed confirmed a completely normal appendix. The patient does have a psychiatrist who he will follow up with [facility]. PHYSICAL EXAMINATION: Please refer to note from same day. DISCHARGE DIAGNOSIS: Abdominal pain, psychosomatic. DISCHARGE DISPOSITION: To home. DISCHARGE CONDITION: Improved. DISCHARGE MEDICATIONS: Please refer to MAR. DISCHARGE INSTRUCTIONS: The patient will follow up with PCP as well as his psychiatrist [facility]. LUIS ALAN MD DR: ONELIA/nts JOB#: [id number] / [id number] KIA Wilson MD MTDD
== END 2017-02-23 16:40 | disposition home or self-care (01) | DRG 882 ==
LOC: ER 18:40 → 6 SOUTH 20:22
PROVIDERS: ADMIT Internal Medicine Hematology & Oncology; ATTEND Internal Medicine Hematology & Oncology
DX: F45.41 Pain disorder exclusively related to psychological factors (principal); K50.90 Crohn's disease, unspecified, without complications; R10.32 Left lower quadrant pain; F32.9 Major depressive disorder, single episode, unspecified; F43.10 Post-traumatic stress disorder, unspecified; G25.81 Restless legs syndrome; G89.29 Other chronic pain; I10 Essential (primary) hypertension; F12.90 Cannabis use, unspecified, uncomplicated; K57.90 Diverticulosis of intestine, part unspecified, without perforation or abscess without bleeding; R11.2 Nausea with vomiting, unspecified; F45.9 Somatoform disorder, unspecified; K29.50 Unspecified chronic gastritis without bleeding; R63.4 Abnormal weight loss; Z68.27 Body mass index [BMI] 27.0-27.9, adult; Z80.0 Family history of malignant neoplasm of digestive organs; Z90.49 Acquired absence of other specified parts of digestive tract; Z72.0 Tobacco use
CPT/HCPCS: 36415; 74176; 74177; 80048; 80053; 81001; 83690; 85027; 87086; 96361; 96374; 96375; 96376; J1170; J2405; J2765; J7030; Q9966; Q9967; 99285-25

== ENCOUNTER 2017-03-12 09:06 | Emergency (ER) | payer SELFPAY ==
[~2017-03-12 09:06] MED LIST changes: +ALPR1TAB2 PO; +OXYC10TA32 PO
[2017-03-12 09:34] VITALS: BP 150/86
[2017-03-12 09:52] LABS: BASO % 0 % (0-3); EOS % 1 % (0-3); HEMATOCRIT 40.8 % (39.0-53.0); HEMOGLOBIN 13.9 g/dL (13.0-17.5); LYMPH # 1.5 x10^3/uL (1.0-4.8); LYMPH % 17 % (24-48); MEAN CORPUSCULAR HEMOGLOBIN 31 pg (25-35); MEAN CORPUSCULAR HGB CONC 34 g/dL (31-37); MEAN CORPUSCULAR VOLUME 91 fL (79-100); MONO % 5 % (0-9); NEUT % 77 % (31-73); PLATELET COUNT 323 x10^3/uL (140-400); RED CELL DISTRIBUTION WIDTH 14.6 % (11.5-14.5)
[2017-03-12] MEDS ORDERED: ONDANSETRON PF 4 MG/2 ML VIAL. IV ONE (10:00)
[2017-03-12] MEDS ORDERED: DICYCLOMINE 20 MG/2 ML AMPUL. IM ONE (10:00)
[2017-03-12] MEDS ORDERED: IV NORMAL SALINE 1000ML BAG 1,000 ML IV SCH (10:00)
[2017-03-12] MEDS ORDERED: KETOROLAC TROMETHAMINE 30 MG/ML INJ. IV ONE (10:00)
[2017-03-12 10:06] LABS: CALCIUM 9.4 mg/dL (8.5-10.1); CREATININE 1.1 mg/dL (0.7-1.3); GFR 74.9; POTASSIUM 3.6 mmol/L (3.5-5.1)
[2017-03-12 10:11] LABS: TOTAL BILIRUBIN 0.7 mg/dL (0.2-1.0); TOTAL PROTEIN 8.2 g/dL (6.4-8.2)
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
== END 2017-03-12 13:46 | disposition home or self-care (01) ==
LOC: ER 09:06
DX: R10.9 Unspecified abdominal pain (principal); R11.2 Nausea with vomiting, unspecified; I10 Essential (primary) hypertension; G25.81 Restless legs syndrome; F12.10 Cannabis abuse, uncomplicated; Z90.49 Acquired absence of other specified parts of digestive tract
CPT/HCPCS: 36415; 80053; 83690; 85027; 99284

== ENCOUNTER 2017-04-08 13:05 | Emergency (ER) | payer SELFPAY ==
[~2017-04-08] VITALS: Ht 193 cm; Wt 97.1 kg
[2017-04-08 13:29] VITALS: BP 135/85
[2017-04-08] MEDS ORDERED: HYDR-971 PO (13:41)
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
== END 2017-04-08 14:00 | disposition home or self-care (01) ==
LOC: ER 13:58
DX: M25.562 Pain in left knee (principal); I10 Essential (primary) hypertension; V89.2XXA Person injured in unspecified motor-vehicle accident, traffic, initial encounter; Y92.413 State road as the place of occurrence of the external cause; Y93.89 Activity, other specified; Y99.9 Unspecified external cause status
CPT/HCPCS: 99283